=== PATIENT | female | born 1975 | race Caucasian/White ===

== ENCOUNTER → 2019-04-26 | Outpatient (CLI) | payer OTHER ==
--- NOTE | 2019-04-26 16:13 | KCIC ---
MR of the left knee HISTORY: Left knee pain. Injury less than a week ago. TECHNIQUE: Routine multiplanar sequences are obtained. FINDINGS: No evidence of medial meniscal tear. No evidence of lateral meniscal tear. Anterior cruciate ligament is intact. High-grade tear of the posterior cruciate ligament. Medial collateral ligament is intact with mild adjacent edema. Iliotibial band unremarkable. Fibular collateral ligament demonstrates mild proximal thickening compatible with degeneration, no acute tear. Diffusely abnormal signal within the popliteus muscle with swelling, compatible with a high-grade intramuscular tear. Popliteus tendon is intact with intact femoral continuity. Extensor mechanism intact. Moderate joint effusion. At least moderate patellofemoral joint chondral thinning. Acute subchondral marrow edema/contusion at the anterior lateral tibial plateau. Extensive soft tissue edema/hemorrhage around the knee. IMPRESSION: 1. High-grade posterior cruciate ligament tear. 2. High-grade intramuscular popliteus tear. 3. Subchondral contusion at the anterior lateral tibial plateau. Electronically signed by: Duarte Mackey MD (04/26/2019 4:10 PM) [id number]
== END | disposition home or self-care (01) ==
LOC: KCIC MRI 13:30
PROVIDERS: ATTEND Registered Nurse
DX: S83.522A Sprain of posterior cruciate ligament of left knee, initial encounter (principal); S86.812A Strain of other muscle(s) and tendon(s) at lower leg level, left leg, initial encounter; S80.02XA Contusion of left knee, initial encounter; M25.462 Effusion, left knee; X58.XXXA Exposure to other specified factors, initial encounter; Y93.89 Activity, other specified; Y92.89 Other specified places as the place of occurrence of the external cause; Y99.8 Other external cause status
CPT/HCPCS: 73721